=== PATIENT | male | born 1985 | race Caucasian/White ===

== ENCOUNTER 2019-06-08 16:06 | Emergency (ER) | payer SELFPAY ==
[2019-06-08] MEDS ORDERED: TETANUS,DIPH,PERTUSS(ACELL) VACCINE 0.5 ML SYRINGE IM ONE ×2 (16:14→19:20)
--- NOTE | 2019-06-08 16:14 | Event Note ---
ED Screening Note Date of service: 06/08/19 Time: 16:12 ED Screening Note: 33 y o male male presents with lac to right hand This initial assessment/diagnostic orders/clinical plan/treatment(s) is/are subject to change based on patients health status, clinical progression and re- assessment by fellow clinical providers in the ED. Further treatment and workup at subsequent clinical providers discretion. Patient/guardian urged not to elope from the ED as their condition may be serious if not clinically assessed and managed. Initial orders include: lac repair
[2019-06-08] MEDS ORDERED: LIDOCAINE-MPF (1%) 10 MG/1 ML VIAL 5 ML INFILTRATI ONE (19:14)
[2019-06-08] MEDS ORDERED: IBUPROFEN 600 MG TAB PO ONE (19:14)
--- NOTE | 2019-06-08 21:20 | Emergency Department Report ---
- General Chief Complaint: Laceration/Recheck/Suture Stated Complaint: NEED SUTURES Time Seen by Provider: 06/08/19 16:11 Source: patient Mode of arrival: Ambulatory Limitations: No Limitations - History of Present Illness Initial Comments: Patient is a 33 yo [place] male with no past medical history presents to the ED with painful bleeding dorsal right hand laceration after a broken piece of glass that he was washing at home broke in his hand and cut the dorsal right hand about 3 hours ago. Patient is able to perform range of motion with the right hand with no difficulty. Patient denies dizziness, nausea, vomiting, headache, chest pain, shortness of breath or right hand weakness. -: Sudden, hour(s) (3) Location: other (right hand) Extremity Location: Right: Hand (right hand) 1 - bleeding laceration of dorsal right hand Place: home Patient Tetanus UTD: No Context: accidental, sharp object use Associated Symptoms: pain. denies: loss of feeling/numbness, suspect foreign body present, unable to move injured part, weakness followed by dizziness, nausea/vomiting - Related Data Previous Rx's Medication Instructions Recorded Last Taken Type Ibuprofen [Motrin] 600 mg PO Q8H PRN #20 tablet 06/08/19 Unknown Rx Sulfamethoxazole/Trimethoprim 1 each PO BID #20 tablet 06/08/19 Unknown Rx [Bactrim DS TAB] Allergies Allergy/AdvReac Type Severity Reaction Status Date / Time No Known Allergies Allergy Unverified 06/08/19 17:39 ED Review of Systems ROS: Stated complaint: NEED SUTURES Other details as noted in HPI Constitutional: denies: chills, fever Eyes: denies: eye pain, eye discharge, vision change ENT: denies: ear pain, throat pain Respiratory: denies: cough, shortness of breath, wheezing Cardiovascular: denies: chest pain, palpitations Endocrine: no symptoms reported Gastrointestinal: denies: abdominal pain, nausea, vomiting, diarrhea, hematemesis Genitourinary: denies: urgency, dysuria Musculoskeletal: arthralgia (right hand laceration). denies: back pain, joint swelling Skin: other (Bleeding right hand laceration). denies: rash, lesions Neurological: denies: headache, weakness, paresthesias Psychiatric: denies: anxiety, depression Hematological/Lymphatic: denies: easy bleeding, easy bruising ED Past Medical Hx - Past Medical History Previous Medical History?: No - Surgical History Past Surgical History?: No - Social History Smoking Status: Never Smoker Substance Use Type: Marijuana - Medications Home Medications: Home Medications Medication Instructions Recorded Confirmed Last Taken Type Ibuprofen [Motrin] 600 mg PO Q8H PRN #20 tablet 06/08/19 Unknown Rx Sulfamethoxazole/Trimethoprim 1 each PO BID #20 tablet 06/08/19 Unknown Rx [Bactrim DS TAB] ED Physical Exam - General Limitations: No Limitations General appearance: alert, in no apparent distress - Head Head exam: Present: atraumatic, normocephalic, normal inspection - Eye Eye exam: Present: normal appearance, PERRL, EOMI Pupils: Present: normal accommodation - ENT ENT exam: Present: normal exam, normal orophraynx, mucous membranes moist, TM's normal bilaterally, normal external ear exam - Neck Neck exam: Present: normal inspection, full ROM - Respiratory Respiratory exam: Present: normal lung sounds bilaterally. Absent: respiratory distress, wheezes, rales, chest wall tenderness - Cardiovascular Cardiovascular Exam: Present: regular rate, normal rhythm, normal heart sounds. Absent: systolic murmur, diastolic murmur, rubs, gallop - GI/Abdominal GI/Abdominal exam: Present: soft, normal bowel sounds. Absent: tenderness, guarding, hyperactive bowel sounds, hypoactive bowel sounds - Rectal Rectal exam: Present: deferred - Extremities Exam Extremities exam: Present: normal inspection - Back Exam Back exam: Present: normal inspection, full ROM. Absent: tenderness, CVA t enderness (R), CVA tenderness (L), muscle spasm, paraspinal tenderness - Neurological Exam Neurological exam: Present: alert, oriented X3, CN II-XII intact, normal gait, reflexes normal - Psychiatric Psychiatric exam: Present: normal affect, normal mood - Skin Skin exam: Present: warm, dry, intact, normal color, other (Bleeding right hand 4 cm laceration with mild tenderness). Absent: rash ED Course Vital Signs 06/08/19 06/08/19 16:11 19:25 Temperature 98.1 F Pulse Rate 75 Respiratory 20 18 Rate Blood Pressure 126/70 O2 Sat by Pulse 96 Oximetry - Reevaluation(s) Reevaluation #1: 06/08/19 21:20 This is a 33-year-old male who presented to the ED with bleeding dorsal right hand laceration after a piece of broken glass cut his right hand while he was washing the glasses at home. In the ED, patient is alert and oriented 3 and is not in distress. Patient was treated for pain and also received booster tetanus vaccination. The dorsal right hand bleeding laceration was sutured per protocol and patient tolerated the procedure well. Patient was discharged home on medications and advised to follow-up with his primary care physician in 7-10 days for reevaluation. Patient was also advised to return to the ED immediately if the symptoms get worse. Patient was otherwise advised to return to the ED or to the primary care physician in 12-14 days for suture removal. - Laceration /Wound Repair Right Dorsal Hand Wound Location: upper extremity (right hand) Wound Length (cm): 4 Wound's Depth, Shape: superficial, linear Wound Explored: contaminated Irrigated w/ Saline (ccs): 50 Betadine Prep?: Yes Anesthesia: 1% Lidocaine Volume Anesthetic (ccs): 5 Wound Debrided: moderate Wound Repaired With: sutures Suture Size/Type: 4:0, proline Number of Sutures: 10 Layer Closure?: No Sterile Dressing Applied?: Yes Progress: Patient tolerated the procedure well. Patient was discharged home on medications and advised to return to the ED in 12-14 days for suture removal, or immediately if symptoms get worse. ED Medical Decision Making - Medical Decision Making This is a 33-year-old male who presented to the ED with bleeding dorsal right hand laceration after a piece of broken glass cut his right hand while he was washing the glasses at home. In the ED, patient is alert and oriented 3 and is not in distress. Patient was treated for pain and also received booster tetanus vaccination. The dorsal right hand bleeding laceration was sutured per protocol and patient tolerated the procedure well. Patient was discharged home on medications and advised to follow-up with his primary care physician in 7-10 days for reevaluation. Patient was also advised to return to the ED immediately if the symptoms get worse. Patient was otherwise advised to return to the ED or to the primary care physician in 12-14 days for suture removal. - Differential Diagnosis Right hand lacertion; right hand pain Critical care attestation.: If time is entered above; I have spent that time in minutes in the direct care of this critically ill patient, excluding procedure time. ED Disposition Clinical Impression: Laceration of right hand Qualifiers: Encounter type: initial encounter Foreign body presence: without foreign body Qualified Code(s): S61.411A - Laceration without foreign body of right hand, initial encounter Disposition: TO HOME OR SELFCARE Is pt being admited?: No Does the pt Need Aspirin: No Condition: Stable Instructions: Laceration (ED) Additional Instructions: Take medications with food, drink plenty of fluids and follow-up with your primary care physician in 5-7 days for reevaluation. Told to the ED immediately if symptoms get worse. Otherwise return to the ED or to her primary care physician in 12-14 days for suture removal. Prescriptions: Sulfamethoxazole/Trimethoprim [Bactrim DS TAB] 1 each PO BID #20 tablet Ibuprofen [Motrin] 600 mg PO Q8H PRN #20 tablet PRN Reason: Pain Referrals: PRIMARY CARE, [Primary Care Provider] - 3-5 Days Time of Disposition: 21:26 Print Language: DANISH
[2019-06-08 21:40] VITALS: BP 119/70
== END 2019-06-08 21:39 | disposition home or self-care (01) ==
LOC: ED 16:06
DX: S61.411A Laceration without foreign body of right hand, initial encounter (principal); F12.10 Cannabis abuse, uncomplicated; W25.XXXA Contact with sharp glass, initial encounter; Y93.89 Activity, other specified; Y92.89 Other specified places as the place of occurrence of the external cause; Y99.8 Other external cause status
CPT/HCPCS: 90471; 90715